=== PATIENT | male | born 1995 | race Caucasian/White ===

== ENCOUNTER 2022-11-04 15:09 | Emergency (ER) | payer MEDICAID ==
[~2022-11-04] VITALS: Ht 175.3 cm; Wt 46.8 kg
[~2022-11-04 15:09] MED LIST: CLIN-97 PO; CLIN150C8 PO
[2022-11-04 15:13] VITALS: BP 112/80
[2022-11-04] MEDS ORDERED: IBUP-1986 PO (16:34)
[2022-11-04] MEDS ORDERED: ketorolac trometh. 30mg/ml inj. IM ONE (16:35)
== END 2022-11-04 16:53 | disposition home or self-care (01) ==
LOC: ER 15:10
DX: R51.9 Headache, unspecified (principal); F12.10 Cannabis abuse, uncomplicated; Z88.0 Allergy status to penicillin; Z79.899 Other long term (current) drug therapy
CPT/HCPCS: 96372; 99283; J1885

== ENCOUNTER 2023-02-18 21:56 | Emergency (ER) | payer SELFPAY ==
[~2023-02-18] VITALS: Ht 177.8 cm; Wt 68.0 kg
[~2023-02-18 21:56] MED LIST changes: +CLIN-214 PO; -CLIN150C8 PO; +IBUP-1986 PO
[2023-02-18 22:06] VITALS: BP 129/82
== END 2023-02-18 22:27 | disposition home or self-care (01) ==
LOC: ER 21:56
DX: S90.512A Abrasion, left ankle, initial encounter (principal); Z88.0 Allergy status to penicillin; Z79.899 Other long term (current) drug therapy; X58.XXXA Exposure to other specified factors, initial encounter; Y93.89 Activity, other specified; Y92.89 Other specified places as the place of occurrence of the external cause; Y99.8 Other external cause status
CPT/HCPCS: 99282

== ENCOUNTER 2024-03-15 00:14 | Emergency (ER) | payer MEDICAID ==
[~2024-03-15] VITALS: Ht 172.7 cm; Wt 63.6 kg
[2024-03-15 00:51] VITALS: BP 152/98; PULSE 101; RESP 16; TEMP 98.7; O2SAT 99
== END 2024-03-15 00:54 ==
LOC: ER 00:14
DX: R00.0 Tachycardia, unspecified (principal); S80.211A Abrasion, right knee, initial encounter; F12.90 Cannabis use, unspecified, uncomplicated; Z88.0 Allergy status to penicillin; Z79.1 Long term (current) use of non-steroidal anti-inflammatories (NSAID); Z79.2 Long term (current) use of antibiotics; X58.XXXA Exposure to other specified factors, initial encounter; Y93.89 Activity, other specified; Y92.89 Other specified places as the place of occurrence of the external cause; Y99.8 Other external cause status
CPT/HCPCS: 99283